=== PATIENT | female | born 1985 | race Caucasian/White ===

== ENCOUNTER 2017-02-26 13:47 | Outpatient (CLI) | payer BC ==
[~2017-02-26] VITALS: Ht 180.3 cm; Wt 135.2 kg
[~2017-02-26 13:47] MED LIST: ALBUAER2 INH
[2017-02-26] MEDS ORDERED: PRENTAB26 PO (14:04)
[2017-02-26 14:23] LABS: BASO % 0.1 %; BASO ABS # 0.02 K/uL (0-0.2); COMPLETE YES; EOS % 1.1 %; HEMATOCRIT 34.1 % (37-47); IG% 1.5 %; LYMPH % 15.2 %; LYMPH ABS # 2.13 K/uL (1.2-3.4); MEAN CELL VOLUME 91.7 fL (80-100); MEAN CORPUSCULAR HGB CONC 34.9 g/dl (32-36); MEAN PLATELET VOLUME 11.1 fL (7.4-10.4); MONO % 5.8 %; NEUT % 76.3 %; PLATELET COUNT 188 K/uL (130-400); RED BLOOD COUNT 3.72 M/uL (4.2-5.4); WHITE BLOOD COUNT 14.02 K/uL (4.8-10.8)
[2017-02-26 14:35] LABS: URINE APPEARANCE CLEAR (CLEAR); URINE BILIRUBIN NEG (NEG); URINE COLOR YELLOW; URINE EPITHELIAL CELL AUTO >30 /lpf (0-5); URINE NITRITE NEG (NEG); URINE PH 6.5 (4.5-7.5); URINE SPECIFIC GRAVITY 1.026 (1.000-1.030); UROBILINOGEN NEG (NEG); ZZUR CULT IF INDIC CLEAN CATCH YES
[2017-02-26 14:36] VITALS: Ht 180.3 cm; Wt 135.2 kg
[2017-02-26 14:42] LABS: BUN/CREATININE RATIO 16.3 (10-20); CALCIUM 8.4 mg/dl (8.5-10.1); CREATININE 0.73 mg/dl (0.60-1.20); POTASSIUM 3.9 mmol/L (3.5-5.1)
[2017-02-26 14:43] LABS: MANUAL MICROSCOPIC REQUIRED? NO; REVIEW REQ? NO
[2017-02-26 14:44] LABS: ALB/GLOB RATIO 0.6 (0.9-2)
== END 2017-02-26 15:24 | disposition home or self-care (01) ==
LOC: C.OPB 13:47 → C.LD 13:48 → C.OPB 15:24
PROVIDERS: ATTEND Obstetrics & Gynecology
DX: O62.9 Abnormality of forces of labor, unspecified (principal); O36.8130 Decreased fetal movements, third trimester, not applicable or unspecified; Z3A.38 38 weeks gestation of pregnancy; O99.213 Obesity complicating pregnancy, third trimester; E66.9 Obesity, unspecified; Z22.330 Carrier of Group B streptococcus

== ENCOUNTER 2017-03-09 10:15 | Inpatient (IN) | payer BC ==
[~2017-03-09] VITALS: Ht 177.8 cm; Wt 134.1 kg
[~2017-03-09 10:15] MED LIST changes: +PRENTAB26 PO
[2017-03-09 10:57] VITALS: Ht 177.8 cm; Wt 134.1 kg
[2017-03-09] MEDS ORDERED: LACTATED RINGER'S 1000ML 500 ML IV PRN ×2 (11:33→17:24)
[2017-03-09] MEDS ORDERED: LACTATED RINGER'S 1000ML 1,000 ML IV PRN (11:34)
[2017-03-09] MEDS ORDERED: OXYTOCIN 30 UNITS/500ML NSS IV PRN (11:45)
[2017-03-09] MEDS ORDERED: PENICILLIN G POTASSIUM IV 6 MU in DEXTROSE 5% 250ML 250 ML IV ONE (12:00)
[2017-03-09 12:05] LABS: HEMATOCRIT 36.8 % (37-47); MEAN CELL VOLUME 91.5 fL (80-100); MEAN CORPUSCULAR HEMOGLOBIN 32.1 pg (25-34); MEAN CORPUSCULAR HGB CONC 35.1 g/dl (32-36); MEAN PLATELET VOLUME 11.3 fL (7.4-10.4); PLATELET COUNT 194 K/uL (130-400); RED BLOOD COUNT 4.02 M/uL (4.2-5.4); WHITE BLOOD COUNT 12.08 K/uL (4.8-10.8)
[2017-03-09] MEDS: LACTATED RINGER'S 1000ML 1,000 ML IV SCH ×3 (12:08→23:31)
[2017-03-09 12:23] LABS: BUN/CREATININE RATIO 12.1 (10-20); CALCIUM 8.5 mg/dl (8.5-10.1); CREATININE 0.61 mg/dl (0.60-1.20)
--- NOTE | 2017-03-09 12:26 | HISTORY & PHYSICAL EXAMINATION ---
DATE OF ADMISSION: 03/09/2017 LABOR AND DELIVERY ADMISSION NOTE CHIEF COMPLAINT: Induction of labor. HISTORY OF PRESENT ILLNESS: The patient is a 31-year-old G2, P1-0-0-1 at 39 weeks and 5 days of gestation who was scheduled for induction of labor at term with favorable cervix for large for gestational age. Her fundus was measuring large and she had ultrasound done on February 17 and baby was measuring 3660 grams which was at 90-95th percentile. She delivered a full term baby of 9 pounds 2 ounces in 2014. She desired to be induced at term, not wait until after her due date. She has no complaints, no contractions, leakage of fluid, or vaginal bleeding. She reports good movements. She denies headaches, change in her vision, epigastric or right upper quadrant pain. She denies fever, chills, chest pain or shortness of breath. Her has been complicated by: 1. Obesity in . BMI 33 at new OB visit. 2. Medication exposure during first trimester. Phentermine. 3. Subchorionic hemorrhage of placenta in first trimester, which was resolved. 4. Abnormal Pap smear in first trimester, high risk HPV positive. She had colposcopy and it was negative. 5. GBS positive. PAST MEDICAL HISTORY: As above, allergic rhinitis, mild asthma. PAST SURGICAL HISTORY: Dental wisdom teeth extraction. ALLERGIES: No known drug allergies. MEDICATIONS: vitamins and albuterol as needed. SOCIAL HISTORY: The patient denies smoking, alcohol or drug use. GYNECOLOGIC HISTORY: The patient denies history of STDs including Chlamydia, gonorrhea, herpes. NEW OBSTETRICAL LABS: Her blood type is A positive, antibody screen negative. H&H was 13/38, platelets 267. Rubella titer positive, RPR nonreactive, hepatitis B surface antigen negative. Urine culture was negative. GC chlamydia cultures were negative. One hour Glucola was 118 and repeat Glucola was 91 at 28 weeks. H&H was 13/37 and GBS culture was positive on February 09. PHYSICAL EXAMINATION: BP: 143/93, repeat 150/84, Pulse 76, R: 20, Temp: 98.1 F GENERAL: The patient is alert, oriented x3, not in acute distress. ABDOMEN: Soft, nontender, gravid, Derick 9-10 pounds. EXTREMITIES: Nontender and 1+ pretibial edema. PELVIS: Her cervix is 3-4 cm dilated, 50%, soft, minus 3, vertex and heart rate 140s, reactive, good accelerations, no decelerations, moderate variability. [place], no contractions. . ASSESSMENT AND PLAN: The patient is a 31-year-old G2, P1-0-0-1 at 39 weeks and 5 days of gestation presenting for induction of labor at term with favorable cervix and large for gestational age baby. Vital signs stable, afebrile. Borderline elevated BP's. heart rate reassuring. GBS positive. Plan Admit, monitor Blood work and urine for protein Induction of labor. I discussed the options of cervical ripening with oral misoprostol versus Pitocin. She understands that induction may take a day or two and if she gets Pitocin, she will be in the bed and monitored continuously versus with Cytotec she may ambulate. Discussed all the risks and benefits of each and and she decided to start Pitocin for induction of labor. All questions were answered. CHAN
[2017-03-09 12:28] LABS: ALB/GLOB RATIO 0.6 (0.9-2)
[2017-03-09 14:20] LABS: URINE APPEARANCE CLEAR (CLEAR); URINE BILIRUBIN NEG (NEG); URINE COLOR YELLOW; URINE NITRITE NEG (NEG); URINE SPECIFIC GRAVITY 1.009 (1.000-1.030); UROBILINOGEN NEG (NEG); ZZUR CULT IF INDIC CLEAN CATCH NO
[2017-03-09 14:23] LABS: MANUAL MICROSCOPIC REQUIRED? NO; REVIEW REQ? NO
[2017-03-09 15:03] LABS: CREATININE, URINE 33.5 mg/dl; URINE PROTIEN/CREAT RATIO 0.3 (0-0.2); URINE TOTAL PROTEIN 8.4 mg/dl (0-11.9)
[2017-03-09] MEDS ORDERED: EpHEDrine SULFATE INJ 50 MG/ML AMP ONE (16:37)
[2017-03-09] MEDS ORDERED: BUPIVACAINE 0.25% 30 ML VIAL ONE (16:37)
[2017-03-09] MEDS ORDERED: FENTANYL 2MCG/ML ROPIV 1.25MG/ML 100ML BAG EPI ONE (16:37)
[2017-03-09] MEDS ORDERED: FENTANYL CITRATE INJ 50 MCG/1 ML 2 ML VIAL ONE (16:38)
[2017-03-09] MEDS ORDERED: NALOXONE HCL INJ 1 MG in SODIUM CHLORIDE 0.9% 1000ML 1,000 ML IV PRN ×4 (17:24)
[2017-03-09] MEDS ORDERED: METOCLOPRAMIDE HCL INJ 20 MG in SODIUM CHLORIDE 0.9% 50ML 50 ML IV PRN (17:30)
[2017-03-09] MEDS ORDERED: EpHEDrine SULFATE INJ 50 MG/ML AMP IV PRN (17:30)
[2017-03-09] MEDS ORDERED: PROMETHAZINE HCL INJ 25 MG in SODIUM CHLORIDE 0.9% 50ML 50 ML IV PRN (17:30)
[2017-03-09] MEDS ORDERED: NALOXONE HCL INJ 0.4 MG/1 ML VIAL/CARP IV PRN (17:30)
[2017-03-09] MEDS ORDERED: NALBUPHINE HCL INJ 10 MG/ML AMP IV PRN (17:30)
[2017-03-09] MEDS ORDERED: DiphenhydrAMINE HCL 50 MG/ML VIAL IV PRN (17:30)
[2017-03-09] MEDS ORDERED: ONDANSETRON INJ 2 MG/ML 2 ML VIAL IV PRN (17:30)
[2017-03-09] MEDS: PENICILLIN G POTASSIUM IV 3 MU in DEXTROSE 5% 100ML 100 ML IV PRN ×2 (17:49→21:56)
[2017-03-09] MEDS: FENTANYL 2MCG/ML ROPIV 1.25MG/ML 100ML BAG EPI PRN ×2 (19:13→23:40)
[2017-03-09] MEDS ORDERED: CALCIUM CARBONATE 500 MG CHEWABLE PO PRN (20:30)
[2017-03-10] MEDS ORDERED: SUPERCREAM 0.870 % 15GM JAR EXT PRN (01:00)
[2017-03-10] MEDS ORDERED: LANOLIN OINT EXT PRN ×2 (01:00)
[2017-03-10] MEDS ORDERED: HYDROCORTISONE ACETATE 25 MG SUPP PR PRN (01:00)
[2017-03-10] MEDS ORDERED: BENZOCAINE 20% AER SPR 82.5 GM CAN EXT PRN (01:00)
[2017-03-10] MEDS ORDERED: DIPHTHERIA/TETANUS/PERTUSSIS 0.5 ML SYR/VIAL IM. ONE (01:00)
[2017-03-10] MEDS ORDERED: MEASLES, MUMPS & RUBELLA VIRUS VIAL SQ. ONE (01:00)
[2017-03-10] MEDS ORDERED: OXYTOCIN 30 UNITS/500ML NSS IV PRN (01:00)
[2017-03-10] MEDS ORDERED: ACETAMINOPHEN 325 MG TAB PO PRN (01:00)
[2017-03-10 03:15] VITALS: BP 125/88; PULSE 95; TEMP 36.8; O2SAT 95
[2017-03-10] MEDS: IBUPROFEN 600 MG TAB PO PRN ×5 (04:01→19:35)
--- NOTE | 2017-03-10 07:11 | DELIVERY SUMMARY ---
DATE OF OPERATION: 03/10/2017 TIME OF DELIVERY OF BABY: 00:24 a.m. TIME OF DELIVERY OF PLACENTA: 00:34 a.m. DETAILS OF DELIVERY: The patient was found to be fully dilated and desired to push. She pushed with 2 contractions and delivered the head without difficulty as GUERDA. After the delivery of the head, turtle sign was noted over the perineum. Then shoulders were checked, the anterior, right shoulder was found to be stuck behind the pubic bone. Shoulder dystocia was noted to the nurses. With McRobert's maneuver and suprapubic pressure unable to deliver anterior shoulder with minimal traction. The posterior, left, shoulder was delivered without difficulty with aid of 2 fingers under left axilla and then anterior shoulder and then the baby within 30 seconds of the delivery of the head. Baby was handed off to the mother, where mouth and nose were suctioned. Cord was clamped x2 and cut. Baby was handed off the nurses. The cord blood was obtained, It was a 3-vessel cord. Perineum and vagina were checked for lacerations. There was a very superficial first degree laceration between the anterior labial fusion which was oozing small amount of blood. Pressure was applied with a sponge. Then placenta was found to be in the vagina, delivered spontaneously intact and complete. The uterus was explored and found to be empty. The lower segment was cleared off all clots and debris. Fundus was firm. EBL was 200. Superficial laceration was checked and it was oozing blood again. It was repaired with 3-0 Vicryl in a SH needle with [id number] stitch x1. Excellent hemostasis was achieved. The rest of the vagina and perineum were intact. Mom and baby tolerated the procedure well. Sponge, lap and instrument counts were correct x2. Baby was a viable female . Apgars 8/9, weight was 4620 gr, 10 lb 3 oz. No complications happened and I was present during whole procedure. I attest to the content of the Intraoperative Record and any orders documented therein. Any exceptions are noted below. MTDD
[2017-03-10 07:17] VITALS: BP 133/92; PULSE 83; TEMP 36.8; O2SAT 97
--- NOTE | 2017-03-10 08:13 | Anesthesia Procedure Note ---
Anesthesia Epidural Removal Nt Date & Time Mar 10, 2017 at 08:13 Vital Signs Pain Intensity: 5.0 Vital Signs Past 12 Hours Date Time Temp Pulse Resp B/P (MAP) Pulse Ox O2 Delivery O2 Flow Rate FiO2 03/10/17 07:17 36.8 83 20 133/92 (106) 97 Room Air 03/10/17 03:15 95 Room Air 03/10/17 03:15 36.8 95 18 125/88 (100) 95 Room Air Notes Mental Status: alert / awake / arousable, participated in evaluation Nausea / Vomiting: adequately controlled Pain: adequately controlled Airway Patency, RR, SpO2: stable & adequate BP & HR: stable & adequate Hydration State: stable & adequate Neuraxial Anesthesia: was administered Anesthetic Complications: no major complications apparent, pt satisfied with anesthetic care Epidural: removed without complications, with tip intact
[2017-03-10] MEDS: PRENATAL VITAMIN TAB PO SCH (08:19)
[2017-03-10] MEDS: DOCUSATE SODIUM 100 MG CAP PO SCH ×2 (08:19→19:35)
[2017-03-10] MEDS: FERROUS SULFATE 325 MG TAB PO SCH (08:19)
--- NOTE | 2017-03-10 09:38 | OB/GYN Progress Note ---
MED SPA MANAGER Progress Note Date of Service Mar 10, 2017. Subjective conversation w/ patient, physical exam Ambulation: ambulating normally Voiding: no voiding problems Passing Gas: Yes Diet Tolerance: Regular Diet Lochia: Moderate Feeding Type: Breast Feeding Review of Systems Constitutional: No fever, No chills, No sweats, No weight loss, No weakness, No fatigue, No problem reported Respiratory: No cough, No sputum, No wheezing, No shortness of breath, No dyspnea on exertion, No dyspnea at rest, No hemoptysis, No problem reported Cardiac: No chest pain, No orthopnea, No PND, No edema, No claudication, No palpitations, No problem reported Breast: No see HPI, No breast lump, No change in shape, No nipple discharge, No breast pain, No problem reported Abdomen: No pain, No nausea, No vomiting, No diarrhea, No constipation, No GI bleeding, No problem reported Female : No see HPI, No dysuria, No urinary frequency, No hematuria, No incontinence, No abnormal vaginal bleeding, No vaginal discharge, No problem reported Objective Vital Signs Date Time Temp Pulse Resp B/P (MAP) Pulse Ox O2 Delivery O2 Flow Rate FiO2 03/10/17 07:45 Room Air 03/10/17 07:17 36.8 83 20 133/92 (106) 97 Room Air 03/10/17 03:15 95 Room Air 03/10/17 03:15 36.8 95 18 125/88 (100) 95 Room Air Physical Exam General Appearance: WELL-APPEARING, WD/WN, NO APPARENT DISTRESS Respiratory/Chest: chest non-tender, lungs clear, normal breath sounds, no respiratory distress Cardiovascular: regular rate, rhythm, no edema, no gallop, no JVD Abdomen: normal bowel sounds, non tender Fundus: Firm Extremities: normal range of motion, non-tender, normal inspection Laboratory Results Last 24 Hours Test 03/09/17 11:48 White Blood Count 12.08 K/uL Red Blood Count 4.02 M/uL Hemoglobin 12.9 g/dL Hematocrit 36.8 % Mean Corpuscular Volume 91.5 fL Mean Corpuscular Hemoglobin 32.1 pg Mean Corpuscular Hemoglobin Concent 35.1 g/dl RDW Standard Deviation 43.3 fL RDW Coefficient of Variation 13.0 % Platelet Count 194 K/uL Mean Platelet Volume 11.3 fL Sodium Level 136 mmol/L Potassium Level 4.0 mmol/L Chloride Level 106 mmol/L Carbon Dioxide Level 23 mmol/L Anion Gap 7.0 mmol/L Blood Urea Nitrogen 7 mg/dl Creatinine 0.61 mg/dl Est Creatinine Clear Calc Drug Dose 201.7 ml/min Estimated GFR () 141.0 Estimated GFR (Non- 121.7 BUN/Creatinine Ratio 12.1 Random Glucose 78 mg/dl Calcium Level 8.5 mg/dl Total Bilirubin 0.5 mg/dl Aspartate Amino Transf (AST/SGOT) 15 U/L Alanine Aminotransferase (ALT/SGPT) 23 U/L Alkaline Phosphatase 122 U/L Total Protein 6.6 gm/dl Albumin 2.5 gm/dl Globulin 4.1 gm/dl Albumin/Globulin Ratio 0.6 Assessment and Plan Day Number: 1 Continue Routine Care: PPD #1 pt doing well anticipate disch tomorrow
[2017-03-10 12:15] VITALS: BP 133/94; PULSE 86; TEMP 36.7; O2SAT 6
[2017-03-10 16:00] VITALS: BP 128/90; PULSE 89; TEMP 36.8
[2017-03-10 19:30] VITALS: BP 130/78; PULSE 86; TEMP 36.8
[2017-03-11 00:50] VITALS: BP 114/61; TEMP 36.8; O2SAT 96
[2017-03-11] MEDS: IBUPROFEN 600 MG TAB PO PRN (06:01)
[2017-03-11 06:40] LABS: HEMATOCRIT 36.4 % (37-47)
[2017-03-11 07:40] VITALS: BP 127/84; PULSE 77; TEMP 36.5
[2017-03-11] MEDS: DOCUSATE SODIUM 100 MG CAP PO SCH (07:51)
[2017-03-11] MEDS: FERROUS SULFATE 325 MG TAB PO SCH (07:51)
[2017-03-11] MEDS: PRENATAL VITAMIN TAB PO SCH (07:51)
--- NOTE | 2017-03-11 09:22 | Discharge Instructions ---
Discharge Instructions Date of Service Mar 11, 2017. Admission Reason for Admission: Induction Discharge Discharge Diagnosis / Problem: Vaginal Delivery Discharge Goals Goal(s): Routine recovery after delivery Medications Continue Dispensed Medications: supercream, dermaplast, tucks, lansinoh Activity Recommendations Activity Limitations: per Instructions/Follow-up section . Instructions / Follow-Up Instructions / Follow-Up ACTIVITY RECOMMENDATIONS: * Gradual return to full activity over the next 2-3 weeks. * No lifting - nothing heavier than baby over the next 2-3 weeks. * Do not engage in vigorous exercise, sexual activity or sports until cleared by your physician. * Do not drive or operate any motorized equipment until cleared by your physician. * You may shower/bathe daily. BREAST CARE: If you are not breast feeding: * Wear a supportive bra 24 hours a day for one to two weeks. * Avoid stimulating your breasts and nipples as much as possible during the first few weeks after delivery. * When taking a shower, have the warm water hit your back, not breasts. * When your breasts feel full, apply ice packs. Usually three to four times a day helps ease the discomfort. * Take a mild pain medication (Tylenol/Motrin) when you are uncomfortable. If breast feeding: * Use breast milk to lubricate nipples. Lansinoh cream may be used for sore nipples. You do not need to remove cream prior to breast feeding. If using a different brand of cream, check the label for directions regarding removal of cream prior to nursing. * Wear a supportive bra. * If having problems with breasts or breast feeding, call a applications development consultant or your health care provider. EPISIOTOMY CARE: After delivery, if you have an episiotomy (stitches), the following steps will ease discomfort and aid healing. * For the first 24 hours after delivery, place ice packs next to your episiotomy to help reduce swelling. * After the first 24 hour-period, sitz baths, either portable or in the tub, are suggested. A shower with a shower arm sprayed over the episiotomy may be comforting. * Flori care should be done after each voiding and bowel movement. Squirt warm water from a plastic bottle over the perineum (region of the body between the anus and urinary opening) and pat dry. * Use Dermoplast to ease discomfort. Shake container. [place] directly over the episiotomy. * Place a Tucks on a clean sanitary pad next to your episiotomy. OVER THE COUNTER MEDICATION: * For discomfort or pain, you may use Acetaminophen (Tylenol), Ibuprofen (Advil ), or Naproxen (Aleve) following the package directions. * For constipation you may use Colace following the package directions. SPECIAL CARE INSTRUCTIONS: When you are discharged from the hospital, it is important for you to follow the instructions listed below: * During the first week at home, you should be able to care for yourself and your baby. In addition, the usual light household activities are encouraged. * Limit your activities to the way you feel. Do not try to clean the house or move furniture. Be sensible. * If you actively engage in sports and have done so up until the time of your delivery, you may resume these activities as soon as you feel able. This may take up to one month or even longer. Use good judgment. * Continue to take your vitamins for at least six weeks after the of your baby. * Your diet need not be limited unless you were on a special diet before your delivery. Breast-feeding mothers need around 2500 calories per day and at least 64-80 ounces of fluid per day (8 to 10 glasses). * You should eat foods from the four major food groups. Crash diets or fad diets are to be avoided. Eating lean meats, fresh fruits and vegetables, low-fat dairy products, high fiber foods and a regular exercise program, will help you get back to your pre- weight without putting your health at risk. * Constipation is sometimes a problem after delivery. Take a mild laxative as needed. If breast feeding, Milk of Magnesia is acceptable to use. You may use a suppository or Fleets enema if no episiotomy. * A daily shower or tub bath is suggested. Be sure to thoroughly and gently dry the perineum. * A bloody vaginal discharge will usually continue until around four weeks post . A small amount of bleeding may continue for as long as six weeks. Vaginal discharge changes from the bright red bleeding after delivery to pink then brownish and finally yellowish-pink before becoming white and disappearing. * Bleeding may increase with activity. Your first period may come in 4-8 weeks. If you are breast feeding, your period may be delayed even longer. * Mcewen (sex) can begin whenever both you and your partner feel comfortable and do not have any form of genital infection. It is recommended that you wait until after your return appointment and discuss with your physician. If you have questions, please talk to your health care practitioner. A condom should be used to prevent infection and . * Foreplay, gentle intercourse and lubrication is very important the first several times to prevent pain. A water-based lubricant such as K-Y jelly or Astroglide may be used. * Tampons may be used six weeks after delivery. * Douching should be avoided for 6 weeks after delivery. * If you have RH negative blood and your baby is RH positive, you will receive RHOGAM by injection prior to discharge. The nurse will give you a card to keep with you that has the date and place that you received RHOGAM after delivery. * During your care, you had a Rubella screen done to check for the presence of rubella antibodies in your blood. If your test was negative, you will receive a Rubella vaccine prior to discharge. This vaccine may cause a fever, soreness at the injection site and flu-like symptoms. If these symptoms persist, notify your health care practitioner. is not advised for three months after a Rubella vaccine. There is a higher chance of having a baby with defects if conceived within three months of getting the vaccine. * If you were discharged 24 hours from delivery or before 48 hours: Visiting nurses will come to your home 48 hours after discharge to assess you and your baby. The visiting nurse will meet with you while you are in the hospital to arrange a time and get directions to your home. * Verbalizes understanding of car seat law as reviewed with patient nursing. * Car Seat hand-out given and reviewed with patient by nursing. * Shaken baby information reviewed with patient by nursing. Call you doctor if: * Heavy bleeding (saturating several pads an hour) or passing clots the size of your fist. * A fever >101 degrees F (38.3 degrees C) on two occasions four hours apart and/or chills. * Unusual pain in the pelvic or vaginal areas. * "Baby Blues" lasting longer than two weeks. If you have any questions or concerns, call your health care practitioner at . FOLLOW-UP VISIT: * Please call the office at to schedule a 6 week examination. It is important you keep this appointment. * It is important for you to make arrangements for either yearly or twice yearly check-ups thereafter. Current Hospital Diet Patient's current hospital diet: Regular OB Diet Discharge Diet Recommended Diet: Regular OB Diet Pending Studies Studies pending at discharge: no Medical Emergencies . Who to Call and When: Medical Emergencies: If at any time you feel your situation is an emergency, please call 911 immediately. . Non-Emergent Contact Non-Emergency issues call your: Primary Care Provider . . "Provider Documentation" section prepared by Delano Umanzor. . VTE Core Measure Inpt VTE Proph given/why not?: Treatment not indicated
--- NOTE | 2017-03-11 09:24 | OB/GYN Progress Note ---
RETURNING OFFICER Progress Note Date of Service Mar 11, 2017. Subjective conversation w/ patient, physical exam Ambulation: ambulating normally Voiding: no voiding problems Passing Gas: Yes Diet Tolerance: Regular Diet Lochia: Moderate Feeding Type: Breast Feeding Pain: 03/30 Notes: Doing well, no concerns. Pain well controlled. Tolerating regular diet. Ambulating without difficulty. Would like to go home today. Objective Vital Signs Date Time Temp Pulse Resp B/P (MAP) Pulse Ox O2 Delivery O2 Flow Rate FiO2 03/11/17 07:40 Room Air 03/11/17 07:40 36.5 77 18 127/84 (98) 03/11/17 00:50 96 Room Air 03/11/17 00:50 36.8 16 114/61 (78) 96 Room Air 03/10/17 19:30 36.8 86 18 130/78 (95) Room Air 03/10/17 16:00 36.8 89 18 128/90 (103) Room Air 03/10/17 16:00 Room Air 03/10/17 12:15 36.7 86 18 133/94 (107) 6 Room Air Physical Exam General Appearance: WELL-APPEARING Respiratory/Chest: chest non-tender, lungs clear Cardiovascular: regular rate, rhythm Abdomen: normal bowel sounds, soft Fundus: Firm Extremities: normal range of motion, non-tender, no calf tenderness Laboratory Results Last 24 Hours Test 03/11/17 06:24 Hemoglobin 12.2 g/dL Hematocrit 36.4 % Assessment and Plan Day Number: 2 Continue Routine Care: -D/C home today -F/U in 6 weeks.
[2017-03-11 13:00] VITALS: BP_DIAS 84; PULSE 77; TEMP 36.5
[2017-03-11] MEDS ORDERED: BISACODYL 5 MG TABEC PO SCH (20:00)
[2017-03-12] MEDS ORDERED: BISACODYL 10 MG SUPP PR PRN (07:00)
== END 2017-03-11 13:14 | disposition home or self-care (01) | DRG 774 ==
LOC: C.LD 10:15 → C.OBG 03-10 02:57
PROVIDERS: ADMIT Obstetrics & Gynecology; ATTEND Obstetrics & Gynecology
PROC: 3E053GC Introduction of Other Therapeutic Substance into Peripheral Artery, Percutaneous Approach (ICD-10-PCS; 2017-03-09)
PROC: 10E0XZZ Delivery of Products of Conception, External Approach (ICD-10-PCS; principal; 2017-03-10)
PROC: 0HQ9XZZ Repair Perineum Skin, External Approach (ICD-10-PCS; principal; 2017-03-10)
DX: O66.0 Obstructed labor due to shoulder dystocia (principal); O98.52 Other viral diseases complicating childbirth; O70.0 First degree perineal laceration during delivery; O99.214 Obesity complicating childbirth; O99.824 Streptococcus B carrier state complicating childbirth; Z68.33 Body mass index [BMI] 33.0-33.9, adult; O34.43 Maternal care for other abnormalities of cervix, third trimester; Z37.0 Single live birth; Z3A.39 39 weeks gestation of pregnancy